=== PATIENT | male | born 1955 | race African-American/Black ===

== ENCOUNTER 2018-01-27 19:48 | Inpatient (IN) | payer BC ==
[~2018-01-27] VITALS: Ht 182.9 cm; Wt 96.6 kg
[2018-01-27] MEDS ORDERED: ACETAMINOPHEN 325MG TABLET PO STA (21:19)
[2018-01-27] MEDS ORDERED: SODIUM CHLORIDE 0.9% 1000ML BAG (SEPSIS BOLUS) IV ONE (21:30)
[2018-01-27 22:08] LABS: MEAN CORPUSCULAR HEMOGLOBIN 30.2 pg (28.0-32.0); MEAN CORPUSCULAR VOLUME 85.8 fL (80.0-94.0); MEAN PLATELET VOLUME 11.5 fl (7.4-10.4); PLATELET 54 x1000/uL (130-400); RED CELL DISTRIBUTION WIDTH 17.1 % (11.6-14.6)
[2018-01-27 22:12] LABS: CHLORIDE 89 mEq/L (98-107)
[2018-01-27 22:13] LABS: HEMOGLOBIN. 6.7 g/dL (14.0-18.0)
[2018-01-27 22:14] LABS: HEMATOCRIT. 18.9 % (42.0-52.0)
[2018-01-27 22:16] LABS: INR 1.1
[2018-01-27 22:20] LABS: ETHANOL BLOOD < 10 mg/dL
[2018-01-27 22:32] LABS: PLATELET ESTIMATE DECREASED
[2018-01-27] MEDS ORDERED: MEROPENEM 1,000 MG in SODIUM CHLORIDE 0.9% 100 ML IV ONE (23:00)
[2018-01-27] MEDS ORDERED: VANCOMYCIN 1 G PREMIX 200 ML IV ONE (23:00)
[2018-01-28] VITALS (9 sets, daily range): BP systolic 128–145; BP diastolic 59–78
[2018-01-28] MEDS ORDERED: IPRATROPIUM/ALBUTEROL 0.5-3(2.5)MG/3ML NEB INH PRN (03:30)
[2018-01-28] MEDS ORDERED: GUAIFENESIN 200MG/10ML SUGAR FREE UDC PO PRN (03:30)
[2018-01-28] MEDS ORDERED: ONDANSETRON HCL 4MG/2ML INJ IV PRN (03:30)
[2018-01-28 03:31] LABS: CLARITY URINE CLEAR (CLEAR); COLOR URINE YELLOW (YELLOW); PROTEIN URINE 2+ (NEGATIVE); SPECIFIC GRAVITY URINE 1.021 (1.005-1.030)
[2018-01-28 03:32] LABS: KETONES URINE TRACE (NEGATIVE); LEUKOCYTE ESTERASE URINE NEGATIVE (NEGATIVE); NITRITE URINE NEGATIVE (NEGATIVE); OCCULT BLOOD URINE NEGATIVE (NEGATIVE)
[2018-01-28 03:44] LABS: *AMPHETAMINES SCREEN URINE NEGATIVE (NEGATIVE); *BARBITURATES SCREEN URINE NEGATIVE (NEGATIVE)
[2018-01-28 03:45] LABS: *BENZODIAZEPINES SCREEN URINE NEGATIVE (NEGATIVE); *COCAINE SCREEN URINE NEGATIVE (NEGATIVE); CANNABINOID URINE SCREEN NEGATIVE (NEGATIVE); METHADONE URINE SCREEN NEGATIVE (NEGATIVE); OPIATES URINE SCREEN PRESUMTIVE POSITIVE (NEGATIVE); PHENCYCLIDINE URINE SCREEN NEGATIVE (NEGATIVE)
[2018-01-28] MEDS ORDERED: DEXTROSE 50% WATER 50ML SYRINGE IV PRN (04:30)
[2018-01-28] MEDS: INSULIN LISPRO 100 UNITS/ML SUBCUT SCH ×4 (08:20→21:00)
[2018-01-28] MEDS ORDERED: PIPERACILLIN/TAZ 3.375G PREMIX 50 ML IV SCH (09:15)
[2018-01-28] MEDS: BLOOD SUGAR DIAGNOSTIC STRIP TEST SCH ×4 (09:38→21:00)
[2018-01-28] MEDS: ACETAMINOPHEN 325MG TABLET PO PRN ×3 (09:53→22:23)
[2018-01-28] MEDS ORDERED: APIX5TAB MT (11:06)
[2018-01-28] MEDS ORDERED: LISI-604 MT (11:06)
[2018-01-28] MEDS ORDERED: INFLUENZA VIRUS VACCINE(AFLURIA) 0.5ML SYR IM ONE (12:00)
[2018-01-28] MEDS: DEXT 5%/0.45% NACL 1000ML 1,000 ML IV SCH ×2 (12:40→22:25)
[2018-01-28] MEDS: VANCOMYCIN 1 G PREMIX 200 ML IV SCH (12:59)
[2018-01-28 15:48] LABS: BASOPHILS % 0.5 % (0.0-2.0); EOSINOPHILS % 0.2 % (0.0-5.0); HEMOGLOBIN. 7.3 g/dL (14.0-18.0); LYMPHOCYTES % 25.3 % (20.0-50.0); MEAN CORPUSCULAR HEMOGLOBIN 30.5 pg (28.0-32.0); MEAN CORPUSCULAR VOLUME 86.6 fL (80.0-94.0); MEAN PLATELET VOLUME 11.3 fl (7.4-10.4); MONOCYTES % 3.8 % (2.0-8.0); NEUTROPHILS % 70.2 % (40.0-76.0); RED BLOOD CELL COUNT 2.39 mill/uL (4.7-6.1); RED CELL DISTRIBUTION WIDTH 16.7 % (11.6-14.6)
[2018-01-28 16:05] LABS: CHLORIDE 93 mEq/L (98-107)
[2018-01-28 16:14] LABS: HEMATOCRIT. 20.7 % (42.0-52.0)
[2018-01-28] MEDS: CEFEPIME 1,000 MG in DEXTROSE 5% WATER 50 ML IV SCH (18:02)
[2018-01-28] MEDS: METRONIDAZOLE 500MG TABLET PO SCH (22:22)
[2018-01-28] MEDS: PANTOPRAZOLE SODIUM 40 MG/VIAL IV SCH (22:24)
[2018-01-29] VITALS (11 sets, daily range): BP systolic 123–149; BP diastolic 3–81
[2018-01-29] MEDS: VANCOMYCIN 1 G PREMIX 200 ML IV SCH (00:39)
[2018-01-29] MEDS: CEFEPIME 1,000 MG in DEXTROSE 5% WATER 50 ML IV SCH ×2 (05:52→18:02)
[2018-01-29] MEDS: ACETAMINOPHEN 325MG TABLET PO PRN ×3 (05:53→21:22)
[2018-01-29] MEDS: DEXT 5%/0.45% NACL 1000ML 1,000 ML IV SCH ×2 (07:30→16:54)
[2018-01-29] MEDS: BLOOD SUGAR DIAGNOSTIC STRIP TEST SCH ×4 (08:13→20:57)
[2018-01-29 08:48] LABS: HEMATOCRIT 21.7 % (42.0-52.0); HEMOGLOBIN 7.7 g/dL (14.0-18.0); MEAN CORPUSCULAR HEMOGLOBIN 30.1 pg (28.0-32.0); MEAN CORPUSCULAR VOLUME 85.2 fL (80.0-94.0); RED BLOOD CELL COUNT 2.55 mill/uL (4.7-6.1); RED CELL DISTRIBUTION WIDTH 16.2 % (11.6-14.6)
[2018-01-29 09:24] LABS: CHLORIDE 91 mEq/L (98-107)
[2018-01-29 09:37] LABS: CREATINE KINASE 71 IU/L (39-308)
[2018-01-29] MEDS: PANTOPRAZOLE SODIUM 40 MG/VIAL IV SCH (10:17)
[2018-01-29] MEDS: METRONIDAZOLE 500MG TABLET PO SCH ×2 (10:17→20:57)
[2018-01-29] MEDS: INSULIN LISPRO 100 UNITS/ML SUBCUT SCH ×4 (10:18→21:21)
[2018-01-29] MEDS ORDERED: VANCOMYCIN 1500MG in DEXTROSE 5% WATER 250ML IV SCH (13:00)
[2018-01-29 14:19] LABS: PLATELET 34 x1000/uL (130-400)
[2018-01-30] VITALS (10 sets, daily range): BP systolic 107–146; BP diastolic 59–91
[2018-01-30] MEDS: DEXT 5%/0.45% NACL 1000ML 1,000 ML IV SCH (03:59)
[2018-01-30] MEDS: CEFEPIME 1,000 MG in DEXTROSE 5% WATER 50 ML IV SCH ×2 (05:05→17:15)
[2018-01-30] MEDS: ACETAMINOPHEN 325MG TABLET PO PRN ×2 (05:06→16:40)
[2018-01-30] MEDS: BLOOD SUGAR DIAGNOSTIC STRIP TEST SCH ×4 (07:30→21:29)
[2018-01-30] MEDS: PANTOPRAZOLE SODIUM 40 MG/VIAL IV SCH ×2 (09:18→11:17)
[2018-01-30] MEDS: METRONIDAZOLE 500MG TABLET PO SCH ×2 (09:18→21:14)
[2018-01-30] MEDS: INSULIN LISPRO 100 UNITS/ML SUBCUT SCH ×4 (09:20→21:29)
[2018-01-30 13:34] LABS: HEMATOCRIT 21.8 % (42.0-52.0); HEMOGLOBIN 7.7 g/dL (14.0-18.0); MEAN CORPUSCULAR VOLUME 85.1 fL (80.0-94.0); RED BLOOD CELL COUNT 2.56 mill/uL (4.7-6.1); RED CELL DISTRIBUTION WIDTH 16.1 % (11.6-14.6)
[2018-01-30 13:45] LABS: PLATELET 39 x1000/uL (130-400); PLATELET ESTIMATE MARKEDLY DECREASED
[2018-01-30 14:16] LABS: PLATELET 33 x1000/uL (130-400)
[2018-01-30 18:23] LABS: TOTAL IRON BINDING CAPACITY 157 ug/dL (250-450)
[2018-01-30 19:05] LABS: FERRITIN 6093 ng/mL (22-322)
[2018-01-30] MEDS ORDERED: INSULIN GLARGINE UD 100 UNITS/ML SYR SUBCUT SCH (22:00)
[2018-01-31] VITALS (12 sets, daily range): BP systolic 97–141; BP diastolic 52–98
[2018-01-31] MEDS: CEFEPIME 1,000 MG in DEXTROSE 5% WATER 50 ML IV SCH (05:30)
[2018-01-31] MEDS: BLOOD SUGAR DIAGNOSTIC STRIP TEST SCH ×4 (08:22→20:23)
[2018-01-31] MEDS: INSULIN LISPRO 100 UNITS/ML SUBCUT SCH ×4 (08:43→21:15)
[2018-01-31] MEDS ORDERED: DEXTROSE 50% WATER 50ML SYRINGE IV PRN (10:00)
[2018-01-31] MEDS ORDERED: INSULIN LISPRO 100 UNITS/ML SUBCUT NR (10:00)
[2018-01-31] MEDS: METRONIDAZOLE 500MG TABLET PO SCH ×2 (10:02→20:22)
[2018-01-31] MEDS: PANTOPRAZOLE SODIUM 40 MG/VIAL IV SCH (10:02)
[2018-01-31] MEDS: INSULIN GLARGINE UD 100 UNITS/ML SYR SUBCUT SCH ×2 (10:36→21:14)
[2018-01-31 15:46] LABS: HAPTOGLOBIN 296 mg/dL (30-200)
[2018-01-31 15:48] LABS: D-DIMER 2.41 mg/L FEU (<0.50); PARTIAL THROMBOPLASTIN TIME 30.1 sec (23.4-31.0)
[2018-01-31] MEDS: ACETAMINOPHEN 325MG TABLET PO PRN ×2 (16:53→23:34)
[2018-02-01] VITALS (11 sets, daily range): BP systolic 104–128; BP diastolic 49–67
[2018-02-01] MEDS: BLOOD SUGAR DIAGNOSTIC STRIP TEST SCH ×4 (08:04→21:04)
[2018-02-01] MEDS: METRONIDAZOLE 500MG TABLET PO SCH ×2 (08:59→21:04)
[2018-02-01] MEDS: PANTOPRAZOLE SODIUM 40 MG/VIAL IV SCH (08:59)
[2018-02-01] MEDS: INSULIN LISPRO 100 UNITS/ML SUBCUT SCH ×4 (08:59→21:04)
[2018-02-01] MEDS: INSULIN GLARGINE UD 100 UNITS/ML SYR SUBCUT SCH ×2 (09:39→21:03)
[2018-02-01 23:34] LABS: VITAMIN B12 SERUM 1223 pg/mL (211-911)
[2018-02-01 23:35] LABS: FOLIC ACID (FOLATE) SERUM > 20.00 ng/mL (>5.38)
[2018-02-02] VITALS (16 sets, daily range): BP systolic 100–135; BP diastolic 49–85
[2018-02-02 07:34] LABS: CHLORIDE 98 mEq/L (98-107)
[2018-02-02 07:37] LABS: BASOPHILS % 0.7 % (0.0-2.0); EOSINOPHILS % 0.2 % (0.0-5.0); HEMATOCRIT. 21.4 % (42.0-52.0); HEMOGLOBIN. 7.5 g/dL (14.0-18.0); LYMPHOCYTES % 36.8 % (20.0-50.0); MEAN CORPUSCULAR HEMOGLOBIN 30.6 pg (28.0-32.0); MEAN CORPUSCULAR VOLUME 87.1 fL (80.0-94.0); MEAN PLATELET VOLUME 11.9 fl (7.4-10.4); MONOCYTES % 4.6 % (2.0-8.0); NEUTROPHILS % 57.7 % (40.0-76.0); RED BLOOD CELL COUNT 2.46 mill/uL (4.7-6.1); RED CELL DISTRIBUTION WIDTH 15.8 % (11.6-14.6)
[2018-02-02] MEDS: BLOOD SUGAR DIAGNOSTIC STRIP TEST SCH ×4 (07:44→20:46)
[2018-02-02 07:45] LABS: PHOSPHORUS 3.5 mg/dL (2.5-4.9)
[2018-02-02 07:53] LABS: PLATELET 30 x1000/uL (130-400)
[2018-02-02] MEDS: METRONIDAZOLE 500MG TABLET PO SCH ×2 (09:00→20:42)
[2018-02-02] MEDS: PANTOPRAZOLE SODIUM 40 MG/VIAL IV SCH (09:36)
[2018-02-02] MEDS: INSULIN LISPRO 100 UNITS/ML SUBCUT SCH ×4 (09:45→20:43)
[2018-02-02] MEDS: INSULIN GLARGINE UD 100 UNITS/ML SYR SUBCUT SCH ×2 (10:00→22:05)
[2018-02-02] MEDS ORDERED: FENTANYL CITRATE/PF 50MCG/ML 2ML VIAL ONE (10:03)
[2018-02-02] MEDS ORDERED: MIDAZOLAM HCL 2 MG/2 ML VIAL ONE (10:03)
[2018-02-02] MEDS ORDERED: PROPOFOL 200MG/20ML VIAL IV ONE (10:03)
[2018-02-02] MEDS ORDERED: PHENYLEPHRINE HCL 10 MG/ML 1ML (IV VIAL) IV ONE (10:17)
[2018-02-02] MEDS ORDERED: MEPERIDINE HCL/PF 25MG/ML CPJ IV PRN (10:30)
[2018-02-02] MEDS ORDERED: FENTANYL CITRATE/PF 50MCG/ML 2ML VIAL IV PRN (10:30)
[2018-02-02] MEDS ORDERED: ONDANSETRON HCL 4MG/2ML INJ IV PRN (10:30)
[2018-02-02] MEDS ORDERED: MORPHINE SULFATE 4 MG/ML CPJ (NOT FOR IM USE) IV PRN (10:30)
[2018-02-02] MEDS ORDERED: HYDROMORPHONE HCL/PF 2MG/ML CPJ IV PRN (10:30)
[2018-02-02] MEDS: ACETAMINOPHEN 325MG TABLET PO PRN (20:42)
[2018-02-03] VITALS (11 sets, daily range): BP systolic 115–142; BP diastolic 59–72
[2018-02-03] MEDS: BLOOD SUGAR DIAGNOSTIC STRIP TEST SCH ×4 (07:30→20:37)
[2018-02-03] MEDS: INSULIN GLARGINE UD 100 UNITS/ML SYR SUBCUT SCH ×2 (10:15→22:23)
[2018-02-03] MEDS: INSULIN LISPRO 100 UNITS/ML SUBCUT SCH ×4 (10:16→20:49)
[2018-02-03] MEDS: PANTOPRAZOLE SODIUM 40 MG/VIAL IV SCH (10:16)
[2018-02-03] MEDS: METRONIDAZOLE 500MG TABLET PO SCH ×2 (10:16→20:44)
[2018-02-03 11:42] LABS: BASOPHILS % 0.8 % (0.0-2.0); EOSINOPHILS % 0.3 % (0.0-5.0); LYMPHOCYTES % 31.8 % (20.0-50.0); MEAN CORPUSCULAR HEMOGLOBIN 30.5 pg (28.0-32.0); MEAN CORPUSCULAR VOLUME 87.9 fL (80.0-94.0); MEAN PLATELET VOLUME 10.7 fl (7.4-10.4); NEUTROPHILS % 63.1 % (40.0-76.0); RED BLOOD CELL COUNT 2.32 mill/uL (4.7-6.1); RED CELL DISTRIBUTION WIDTH 15.8 % (11.6-14.6)
[2018-02-03 11:54] LABS: HEMATOCRIT. 20.4 % (42.0-52.0); HEMOGLOBIN. 7.1 g/dL (14.0-18.0)
[2018-02-03 11:55] LABS: PLATELET 50 x1000/uL (130-400)
[2018-02-03 12:19] LABS: PLATELET ESTIMATE MARKEDLY DECREASED
[2018-02-03 15:22] LABS: CHLORIDE 98 mEq/L (98-107)
[2018-02-03] MEDS ORDERED: LANTUSUD SUBCUT (23:12)
[2018-02-03] MEDS ORDERED: INSLIS SUBCUT (23:12)
[2018-02-04] VITALS (12 sets, daily range): BP systolic 126–149; BP diastolic 61–88
[2018-02-04] MEDS: ACETAMINOPHEN 325MG TABLET PO PRN ×2 (01:41→20:26)
[2018-02-04] MEDS: INSULIN LISPRO 100 UNITS/ML SUBCUT SCH ×4 (08:00→21:00)
[2018-02-04] MEDS: BLOOD SUGAR DIAGNOSTIC STRIP TEST SCH ×4 (08:11→21:00)
[2018-02-04] MEDS: PANTOPRAZOLE SODIUM 40 MG/VIAL IV SCH (09:13)
[2018-02-04] MEDS: METRONIDAZOLE 500MG TABLET PO SCH ×2 (09:13→20:26)
[2018-02-04] MEDS ORDERED: IOHEXOL-350 100 ML BOTTLE ONE (10:46)
[2018-02-04] MEDS: INSULIN GLARGINE UD 100 UNITS/ML SYR SUBCUT SCH ×2 (11:00→22:42)
[2018-02-04 17:38] LABS: BASOPHILS % 0.6 % (0.0-2.0); EOSINOPHILS % 0.3 % (0.0-5.0); LYMPHOCYTES % 37.4 % (20.0-50.0); MEAN CORPUSCULAR HEMOGLOBIN 30.2 pg (28.0-32.0); MEAN PLATELET VOLUME 10.7 fl (7.4-10.4); MONOCYTES % 4.7 % (2.0-8.0); PLATELET 62 x1000/uL (130-400); RED BLOOD CELL COUNT 2.23 mill/uL (4.7-6.1); RED CELL DISTRIBUTION WIDTH 15.6 % (11.6-14.6)
[2018-02-04 17:43] LABS: HEMATOCRIT. 19.4 % (42.0-52.0); HEMOGLOBIN. 6.7 g/dL (14.0-18.0)
[2018-02-04 17:49] LABS: CHLORIDE 99 mEq/L (98-107)
[2018-02-05] VITALS (15 sets, daily range): BP systolic 117–151; BP diastolic 57–80
[2018-02-05 07:28] LABS: BASOPHILS % 0.6 % (0.0-2.0); EOSINOPHILS % 0.4 % (0.0-5.0); HEMATOCRIT. 21.2 % (42.0-52.0); HEMOGLOBIN. 7.5 g/dL (14.0-18.0); LYMPHOCYTES % 46.2 % (20.0-50.0); MEAN CORPUSCULAR HEMOGLOBIN 30.5 pg (28.0-32.0); MEAN CORPUSCULAR VOLUME 86.7 fL (80.0-94.0); MEAN PLATELET VOLUME 9.8 fl (7.4-10.4); MONOCYTES % 4.7 % (2.0-8.0); NEUTROPHILS % 48.1 % (40.0-76.0); PLATELET 63 x1000/uL (130-400); RED BLOOD CELL COUNT 2.44 mill/uL (4.7-6.1); RED CELL DISTRIBUTION WIDTH 15.1 % (11.6-14.6)
[2018-02-05] MEDS: BLOOD SUGAR DIAGNOSTIC STRIP TEST SCH ×2 (07:30→12:30)
[2018-02-05] MEDS: INSULIN LISPRO 100 UNITS/ML SUBCUT SCH ×2 (08:00→13:00)
[2018-02-05] MEDS: PANTOPRAZOLE SODIUM 40 MG/VIAL IV SCH (09:00)
[2018-02-05] MEDS: INSULIN GLARGINE UD 100 UNITS/ML SYR SUBCUT SCH (10:43)
[2018-02-05] MEDS ORDERED: LIDOCAINE HCL 1% 20ML VIAL (Pyxis) INJ ONE (13:18)
[2018-02-05] MEDS ORDERED: IOHEXOL-300 100 ML BOTTLE ONE (13:18)
[2018-02-05] MEDS: ACETAMINOPHEN 325MG TABLET PO PRN (19:59)
[2018-02-06 08:17] LABS: HIV SCREEN 4G Non Reactive (Non Reactive)
== END 2018-02-05 20:08 | disposition home or self-care (01) | DRG 853 ==
LOC: ER 19:48 → EDBD 22:48 → 5EST 22:48 → EDBEDREQTM 22:56 → EDBEDREQ 22:56 → ENRESERV 01-28 07:06 → CANRESERV 01-28 07:06 → EDBEDREQSVC 01-28 08:26 → ENRESERV 01-28 09:50
PROVIDERS: ADMIT Internal Medicine; ATTEND Internal Medicine
PROC: 30233N1 Transfusion of Nonautologous Red Blood Cells into Peripheral Vein, Percutaneous Approach (ICD-10-PCS; 2018-01-28)
PROC: 07DQ3ZX Extraction of Sternum Bone Marrow, Percutaneous Approach, Diagnostic (ICD-10-PCS; 2018-02-02)
PROC: 30233R1 Transfusion of Nonautologous Platelets into Peripheral Vein, Percutaneous Approach (ICD-10-PCS; 2018-02-02)
PROC: 06H03DZ Insertion of Intraluminal Device into Inferior Vena Cava, Percutaneous Approach (ICD-10-PCS; principal; 2018-02-05)
PROC: B5191ZZ Fluoroscopy of Inferior Vena Cava using Low Osmolar Contrast (ICD-10-PCS; 2018-02-05)
DX: A41.9 Sepsis, unspecified organism (principal); I26.99 Other pulmonary embolism without acute cor pulmonale; D61.818 Other pancytopenia; I10 Essential (primary) hypertension; M54.5 Low back pain; G89.29 Other chronic pain; E11.9 Type 2 diabetes mellitus without complications; Z86.711 Personal history of pulmonary embolism; Z86.718 Personal history of other venous thrombosis and embolism; Z79.01 Long term (current) use of anticoagulants; Z79.84 Long term (current) use of oral hypoglycemic drugs; Z79.899 Other long term (current) drug therapy
CPT/HCPCS: 36415; 37191; 38220; 71045; 71275; 74176; 80048; 80202; 80305; 82550; 82607; 82728; 82746; 82962; 83010; 83540; 83550; 83605; 83615; 83735; 84100; 84145; 84443; 84484; 85027; 85379; 85384; 86850; 86900; 86920; 86945; 87389; 87804; 88305; 88313; 90686; 93005; 93970; 96365; 97162; 99291; C1769; C1880; C9113; G0482; J0692; J1644; J1815; J2185; J2250; J2370; J2543; J2704; J3010; J3370; J3490; J7030; J7050; J7060; P9016; P9034; Q9967

== ENCOUNTER 2018-02-09 09:38 | Emergency (ER) | payer BC ==
[~2018-02-09] VITALS: Ht 182.9 cm; Wt 88.0 kg
[~2018-02-09 09:38] MED LIST: APIX5TAB MT; INSLIS SUBCUT; LANTUSUD SUBCUT; LISI-604 MT
[2018-02-09] MEDS ORDERED: MORPHINE SULFATE 4 MG/ML CPJ (NOT FOR IM USE) IV STA (10:30)
[2018-02-09 11:26] LABS: HEMATOCRIT. 22.4 % (42.0-52.0); HEMOGLOBIN. 7.6 g/dL (14.0-18.0); MEAN CORPUSCULAR HEMOGLOBIN 30.2 pg (28.0-32.0); MEAN CORPUSCULAR VOLUME 88.5 fL (80.0-94.0); MEAN PLATELET VOLUME 10.5 fl (7.4-10.4); PLATELET 77 x1000/uL (130-400); RED BLOOD CELL COUNT 2.53 mill/uL (4.7-6.1); RED CELL DISTRIBUTION WIDTH 15.2 % (11.6-14.6)
[2018-02-09 11:31] LABS: CHLORIDE 98 mEq/L (98-107)
[2018-02-09 11:32] LABS: PROTHROMBIN TIME 10.5 sec (9.1-11.1)
[2018-02-09] MEDS ORDERED: SODIUM CHLORIDE 0.9% 1,000 ML IV ONE (13:17)
[2018-02-09 13:18] LABS: PLATELET ESTIMATE SLIGHTLY DECREASED
[2018-02-09] MEDS ORDERED: INSULIN REGULAR (HUMULIN R) 300UNITS/3ML IV ONE (13:30)
[2018-02-09 14:15] VITALS: BP 122/70
== END 2018-02-09 14:48 | disposition home or self-care (01) ==
LOC: ER 09:38
DX: R10.31 Right lower quadrant pain (principal); E11.65 Type 2 diabetes mellitus with hyperglycemia; D61.818 Other pancytopenia; I10 Essential (primary) hypertension; Z86.718 Personal history of other venous thrombosis and embolism; Z79.01 Long term (current) use of anticoagulants; Z79.4 Long term (current) use of insulin
CPT/HCPCS: 36415; 72170; 74018; 80053; 82962; 85025; 85610; 93971; 96374; 96375; 99284; J1815; J2270; J7030

== ENCOUNTER 2018-10-19 04:21 | Inpatient (IN) | payer BC ==
[~2018-10-19] VITALS: Ht 182.9 cm; Wt 98.4 kg
[2018-10-19] VITALS (71 sets, daily range): BP systolic 54–173; BP diastolic 21–104
[~2018-10-19 04:21] MED LIST changes: -LISI-604 MT
[2018-10-19] MEDS ORDERED: ONDANSETRON HCL 4MG/2ML INJ IV STA (04:32)
[2018-10-19] MEDS ORDERED: MORPHINE SULFATE 4 MG/ML CPJ (NOT FOR IM USE) IV STA (04:32)
[2018-10-19] MEDS ORDERED: SODIUM CHLORIDE 0.9% 1,000 ML IV ONE ×2 (04:32→08:35)
[2018-10-19] MEDS ORDERED: SODIUM CHLORIDE 0.9% 1000ML BAG (SEPSIS BOLUS) IV ONE (04:45)
[2018-10-19] MEDS ORDERED: HYDROCORTISONE SOD SUCCINATE 100 MG/2 ML VIAL IV ONE ×2 (04:45→05:15)
[2018-10-19] MEDS ORDERED: VANCOMYCIN 1 G PREMIX 200 ML IV ONE (04:45)
[2018-10-19] MEDS ORDERED: PIPERACILLIN/TAZ 3.375G PREMIX 50 ML IV ONE (04:45)
[2018-10-19] MEDS ORDERED: PROPOFOL 10MG/ML 100ML 100 ML IV ONE (04:47)
[2018-10-19 04:54] LABS: HEMATOCRIT. 23.1 % (42.0-52.0); HEMOGLOBIN. 7.9 g/dL (14.0-18.0); MEAN CORPUSCULAR HEMOGLOBIN 29.6 pg (28.0-32.0); MEAN PLATELET VOLUME 7.3 fl (7.4-10.4); RED BLOOD CELL COUNT 2.69 mill/uL (4.7-6.1); RED CELL DISTRIBUTION WIDTH 14.9 % (11.6-14.6)
[2018-10-19 05:02] LABS: CHLORIDE 104 mEq/L (98-107)
[2018-10-19 05:04] LABS: INR 1.2; PROTHROMBIN TIME 11.9 sec (9.6-11.0)
[2018-10-19 05:10] LABS: PLATELET 36 x1000/uL (130-400)
[2018-10-19] MEDS ORDERED: NOREPINEPHRINE 4 MG in DEXT 5% WATER 250 ML IV STA (05:13)
[2018-10-19 05:14] LABS: BG BASE EXCESS -6.3 mmol/L (-2.0-2.0); BG CARBOXYHEMOGLOBIN 0.3 % (0.5-1.5); BG DEOXYHEMOGLOBIN 1.1 % (0.0-5.0); BG FRACTION INSPIRED OXYGEN 100; BG HCO3 ACT 19.6 mmol/L (22.0-26.0); BG METHEMOGLOBIN 0.8 % (0.0-1.5); BG OXYGEN SATURATION 98.9 % (92.0-98.5); BG OXYHEMOGLOBIN 97.8 % (94.0-97.0); BG PCO2 41.1 mmHg (35.0-45.0); BG PH 7.297 (7.350-7.450); BG PO2 254.1 mmHg (75.0-100.0); BG SAMPLE SITE LEFT RADIAL; BG TIDAL VOLUME(mL) 500 mL; BG TOTAL HEMOGLOBIN 7.1 g/dL (12.0-18.0); BG VENT MODE VENT - A/C; BG VENT RATE 16 set
[2018-10-19] MEDS ORDERED: MIDAZOLAM HCL 50 MG in DEXTROSE 5% WATER 40 ML IV ONE (05:15)
[2018-10-19] MEDS ORDERED: NOREPINEPHRINE 4MG/250ML PMX 250 ML IV PRN (05:30)
[2018-10-19] MEDS ORDERED: MIDAZOLAM HCL 50 MG in DEXTROSE 5% WATER 40 ML IV PRN (05:45)
[2018-10-19 05:58] LABS: CLARITY URINE CLEAR (CLEAR); COLOR URINE YELLOW (YELLOW); KETONES URINE NEGATIVE (NEGATIVE); LEUKOCYTE ESTERASE URINE NEGATIVE (NEGATIVE); NITRITE URINE NEGATIVE (NEGATIVE); OCCULT BLOOD URINE NEGATIVE (NEGATIVE); PROTEIN URINE TRACE (NEGATIVE); SPECIFIC GRAVITY URINE 1.021 (1.005-1.030); UROBILINOGEN URINE 0.2 E.U./dL (0.2-1.0)
[2018-10-19 06:32] LABS: ATYPICAL LYMPHOCYTES 10
[2018-10-19 06:33] LABS: PLATELET ESTIMATE DECREASED
[2018-10-19] MEDS ORDERED: EPINEPHRINE 1 MG in SODIUM CHLORIDE 0.9% 250 ML IV STA ×2 (06:47→07:05)
[2018-10-19] MEDS ORDERED: VASOPRESSIN 10 UNIT in SODIUM CHLORIDE 0.9% 99.5 ML STA (06:47)
[2018-10-19] MEDS ORDERED: VASOPRESSIN 10 UNIT in SODIUM CHLORIDE 0.9% 99.5 ML IV STA (07:05)
[2018-10-19] MEDS ORDERED: NOREPINEPHRINE 32 MG in DEXT 5% WATER 468 ML IV PRN (08:12)
[2018-10-19] MEDS ORDERED: PHENYLEPHRINE 80 MG in DEXT 5% WATER 492 ML IV PRN (08:12)
[2018-10-19] MEDS ORDERED: SODIUM CHLORIDE 0.9% 1,000 ML IV SCH (08:15)
[2018-10-19] MEDS ORDERED: ACETAMINOPHEN 325MG TABLET PO PRN (08:30)
[2018-10-19] MEDS ORDERED: ONDANSETRON HCL 4MG/2ML INJ IV PRN (08:30)
[2018-10-19] MEDS: PHENYLEPHRINE 80 MG in DEXT 5% WATER 492 ML IV PRN ×3 (09:18→23:34)
[2018-10-19] MEDS: DEXT 5%/0.9% NACL 1,000 ML IV SCH (09:20)
[2018-10-19] MEDS ORDERED: CEFEPIME 1,000 MG in DEXTROSE 5% WATER 50 ML IV SCH (09:30)
[2018-10-19] MEDS ORDERED: FILGRASTIM 300 MCG/ML VIAL SUBCUT SCH (09:45)
[2018-10-19] MEDS ORDERED: METRONIDAZOLE 500 MG PREMIX 100 ML IV SCH (10:00)
[2018-10-19] MEDS: NOREPINEPHRINE 32 MG in DEXT 5% WATER 468 ML IV PRN (10:16)
[2018-10-19] MEDS: PROPOFOL 10MG/ML 100ML 100 ML IV PRN ×3 (10:18→21:17)
[2018-10-19] MEDS: VASOPRESSIN 10 UNIT in SODIUM CHLORIDE 0.9% 99.5 ML IV PRN ×3 (10:20→19:33)
[2018-10-19] MEDS ORDERED: FILGRASTIM-TBO 300 MCG/0.5 ML SYRINGE SQ SCH (10:30)
[2018-10-19 11:30] LABS: BG BASE EXCESS -13.2 mmol/L (-2.0-2.0); BG CARBOXYHEMOGLOBIN 0.3 % (0.5-1.5); BG DEOXYHEMOGLOBIN 1.6 % (0.0-5.0); BG FRACTION INSPIRED OXYGEN 40; BG HCO3 ACT 11.8 mmol/L (22.0-26.0); BG METHEMOGLOBIN 0.4 % (0.0-1.5); BG OXYGEN SATURATION 98.4 % (92.0-98.5); BG OXYHEMOGLOBIN 97.7 % (94.0-97.0); BG PCO2 24.1 mmHg (35.0-45.0); BG PH 7.308 (7.350-7.450); BG PO2 180.7 mmHg (75.0-100.0); BG SAMPLE SITE RIGHT RADIAL; BG TIDAL VOLUME(mL) 500 mL; BG TOTAL HEMOGLOBIN 6.4 g/dL (12.0-18.0); BG VENT MODE VENT - A/C; BG VENT RATE 18 set
[2018-10-19] MEDS: VANCOMYCIN 1500MG in DEXTROSE 5% WATER 250ML IV SCH ×2 (11:37→23:59)
[2018-10-19] MEDS ORDERED: SODIUM CHLORIDE 0.9% 10ML VIAL ONE (12:00)
[2018-10-19] MEDS ORDERED: VECURONIUM BROMIDE 10 MG/VIAL IV ONE (12:00)
[2018-10-19] MEDS ORDERED: IPRATROPIUM/ALBUTEROL 0.5-3(2.5)MG/3ML NEB HHN SCH (12:00)
[2018-10-19] MEDS: IPRATROPIUM/ALBUTEROL 0.5-3(2.5)MG/3ML NEB HHN PRN (12:03)
[2018-10-19] MEDS ORDERED: MICAFUNGIN 100 MG in SODIUM CHLORIDE 0.9% 100 ML IV SCH (13:00)
[2018-10-19] MEDS ORDERED: FENTANYL CITRATE/PF 50MCG/ML 2ML VIAL IV SCH (13:00)
[2018-10-19] MEDS ORDERED: AMIKACIN SULFATE 500 MG in SODIUM CHLORIDE 0.9% 100 ML IV NR (13:00)
[2018-10-19] MEDS: MEROPENEM 1,000 MG in SODIUM CHLORIDE 0.9% 100 ML IV SCH ×2 (13:18→21:20)
[2018-10-19] MEDS: HYDROCORTISONE SOD SUCCINATE 100 MG/2 ML VIAL IV SCH ×2 (13:19→21:21)
[2018-10-19] MEDS: EPINEPHRINE 1 MG in SODIUM CHLORIDE 0.9% 249 ML IV PRN ×2 (13:46→17:12)
[2018-10-19] MEDS: IPRATROPIUM BROMIDE (0.02%) 0.5MG/2.5ML NEB HHN SCH ×2 (14:10→20:18)
[2018-10-19] MEDS ORDERED: CHOL40002 PO (14:24)
[2018-10-19] MEDS ORDERED: PROG1 PO (14:24)
[2018-10-19] MEDS ORDERED: PANT40TA4 PO (14:24)
[2018-10-19] MEDS ORDERED: LETE480T PO (14:24)
[2018-10-19] MEDS ORDERED: MAGN100T3 PO (14:24)
[2018-10-19] MEDS ORDERED: CLOT10TR2 MM (14:24)
[2018-10-19] MEDS ORDERED: METO25TA6 PO (14:24)
[2018-10-19] MEDS ORDERED: PRED2.5T4 PO (14:24)
[2018-10-19] MEDS ORDERED: ATOV750O PO (14:24)
[2018-10-19] MEDS ORDERED: INSASP SUBCUT (14:24)
[2018-10-19] MEDS ORDERED: LISI-186 PO (14:24)
[2018-10-19] MEDS ORDERED: HYDR-3281 PO (14:24)
[2018-10-19] MEDS ORDERED: URSO300C7 PO (14:24)
[2018-10-19] MEDS ORDERED: ACYC200C PO (14:24)
[2018-10-19] MEDS ORDERED: DIPH1TAB24 PO (14:24)
[2018-10-19] MEDS ORDERED: NPH,100I SQ (14:24)
[2018-10-19] MEDS ORDERED: SODIUM BICARBONATE 8.4% 1 MEQ/ML 50ML SYR IV NR (14:45)
[2018-10-19] MEDS ORDERED: MORPHINE SULFATE 250 MG in DEXT 5% WATER 240 ML IV PRN (16:45)
[2018-10-19] MEDS ORDERED: MORPHINE SULFATE 250 MG in DEXT 5% WATER 225 ML IV PRN (17:15)
[2018-10-19] MEDS: MORPHINE SULFATE 2 MG/ML CPJ (NOT FOR IM USE) IV PRN (17:17)
[2018-10-19 20:15] LABS: T4 FREE 1.57 ng/dL (0.76-1.46)
[2018-10-19 20:37] LABS: FOLIC ACID (FOLATE) SERUM 4.7 ng/mL (>5.38)
[2018-10-19] MEDS: BLOOD SUGAR DIAGNOSTIC STRIP TEST SCH (21:21)
[2018-10-19] MEDS: INSULIN LISPRO 100 UNITS/ML SUBCUT SCH (21:21)
[2018-10-19] MEDS ORDERED: INSULIN GLARGINE UD 100 UNITS/ML SYR SUBCUT SCH (22:00)
[2018-10-19] MEDS ORDERED: FILGRASTIM-TBO 480 MCG/0.8 ML SYRINGE SQ SCH (23:00)
[2018-10-20] VITALS (104 sets, daily range): BP systolic 75–131; BP diastolic 43–79
[2018-10-20] MEDS: DEXT 5%/0.9% NACL 1,000 ML IV SCH ×3 (02:08→13:36)
[2018-10-20] MEDS: VASOPRESSIN 10 UNIT in SODIUM CHLORIDE 0.9% 99.5 ML IV PRN ×5 (02:08→20:42)
[2018-10-20] MEDS: IPRATROPIUM BROMIDE (0.02%) 0.5MG/2.5ML NEB HHN SCH ×4 (02:35→20:38)
[2018-10-20] MEDS: PROPOFOL 10MG/ML 100ML 100 ML IV PRN ×2 (03:13→08:24)
[2018-10-20] MEDS: NOREPINEPHRINE 32 MG in DEXT 5% WATER 468 ML IV PRN ×2 (03:26→23:30)
[2018-10-20] MEDS: EPINEPHRINE 1 MG in SODIUM CHLORIDE 0.9% 249 ML IV PRN (03:57)
[2018-10-20] MEDS: HYDROCORTISONE SOD SUCCINATE 100 MG/2 ML VIAL IV SCH ×3 (05:14→22:24)
[2018-10-20] MEDS: MEROPENEM 1,000 MG in SODIUM CHLORIDE 0.9% 100 ML IV SCH ×2 (05:14→16:04)
[2018-10-20 05:29] LABS: MEAN CORPUSCULAR HEMOGLOBIN 30.8 pg (28.0-32.0); MEAN CORPUSCULAR VOLUME 86.6 fL (80.0-94.0); MEAN PLATELET VOLUME 9.4 fl (7.4-10.4); RED BLOOD CELL COUNT 1.96 mill/uL (4.7-6.1); RED CELL DISTRIBUTION WIDTH 15.3 % (11.6-14.6)
[2018-10-20 06:00] LABS: PLATELET 10 x1000/uL (130-400)
[2018-10-20] MEDS: BLOOD SUGAR DIAGNOSTIC STRIP TEST SCH ×5 (06:32→23:44)
[2018-10-20] MEDS: PHENYLEPHRINE 80 MG in DEXT 5% WATER 492 ML IV PRN ×3 (06:32→21:32)
[2018-10-20] MEDS: INSULIN LISPRO 100 UNITS/ML SUBCUT SCH ×7 (06:32→23:51)
[2018-10-20 07:57] LABS: BG BASE EXCESS -12.4 mmol/L (-2.0-2.0); BG CARBOXYHEMOGLOBIN 0.3 % (0.5-1.5); BG DEOXYHEMOGLOBIN 1.6 % (0.0-5.0); BG FRACTION INSPIRED OXYGEN 40; BG HCO3 ACT 12.7 mmol/L (22.0-26.0); BG METHEMOGLOBIN 0.7 % (0.0-1.5); BG OXYGEN SATURATION 98.4 % (92.0-98.5); BG OXYHEMOGLOBIN 97.4 % (94.0-97.0); BG PCO2 25.3 mmHg (35.0-45.0); BG PH 7.318 (7.350-7.450); BG PO2 140.9 mmHg (75.0-100.0); BG SAMPLE SITE RIGHT RADIAL; BG TIDAL VOLUME(mL) 500 mL; BG TOTAL HEMOGLOBIN 5.4 g/dL (12.0-18.0); BG VENT MODE VENT - A/C; BG VENT RATE 18 set
[2018-10-20] MEDS: EPINEPHRINE 4 MG in SODIUM CHLORIDE 0.9% 246 ML IV PRN ×2 (08:00→11:37)
[2018-10-20] MEDS: FILGRASTIM-TBO 480 MCG/0.8 ML SYRINGE SQ SCH (08:00)
[2018-10-20] MEDS: MORPHINE SULFATE 2 MG/ML CPJ (NOT FOR IM USE) IV PRN (08:02)
[2018-10-20 09:36] LABS: NUCLEATED RED BLOOD CELLS 65 /100 WBC
[2018-10-20 09:37] LABS: PLATELET ESTIMATE MARKEDLY DECREASED
[2018-10-20] MEDS: FENTANYL CITRATE/PF 500 MCG in SODIUM CHLORIDE 0.9% 40 ML IV PRN ×2 (11:02→18:24)
[2018-10-20] MEDS: MIDAZOLAM HCL 50 MG in DEXTROSE 5% WATER 40 ML IV PRN ×2 (12:08→18:08)
[2018-10-20] MEDS ORDERED: MEROPENEM 1,000 MG in SODIUM CHLORIDE 0.9% 100 ML IV SCH (13:00)
[2018-10-20] MEDS ORDERED: MICAFUNGIN 100 MG in SODIUM CHLORIDE 0.9% 100 ML IV SCH (14:00)
[2018-10-20 16:15] LABS: D-DIMER 32.52 mg/L FEU (<0.50); PROTHROMBIN TIME 19.7 sec (9.6-11.0)
[2018-10-20] MEDS ORDERED: MEROPENEM 2,000 MG in SODIUM CHLORIDE 0.9% 100 ML IV SCH (18:00)
[2018-10-20] MEDS: INSULIN GLARGINE UD 100 UNITS/ML SYR SUBCUT SCH (22:25)
[2018-10-21] VITALS (100 sets, daily range): BP systolic 72–135; BP diastolic 40–82
[2018-10-21] MEDS: DEXT 5%/0.9% NACL 1,000 ML IV SCH ×2 (00:40→10:15)
[2018-10-21 01:01] LABS: INR 1.9; PROTHROMBIN TIME 19.4 sec (9.6-11.0)
[2018-10-21 01:12] LABS: HEMOGLOBIN 6.1 g/dL (14.0-18.0)
[2018-10-21 01:13] LABS: HEMATOCRIT 17.9 % (42.0-52.0)
[2018-10-21] MEDS: VASOPRESSIN 10 UNIT in SODIUM CHLORIDE 0.9% 99.5 ML IV PRN ×4 (01:24→14:21)
[2018-10-21] MEDS: IPRATROPIUM BROMIDE (0.02%) 0.5MG/2.5ML NEB HHN SCH ×4 (03:29→19:52)
[2018-10-21] MEDS: MEROPENEM 1,000 MG in SODIUM CHLORIDE 0.9% 100 ML IV SCH ×2 (05:01→16:41)
[2018-10-21] MEDS: PHENYLEPHRINE 80 MG in DEXT 5% WATER 492 ML IV PRN (05:01)
[2018-10-21 05:30] LABS: MEAN CORPUSCULAR HEMOGLOBIN 30.5 pg (28.0-32.0); MEAN PLATELET VOLUME 9.4 fl (7.4-10.4); RED BLOOD CELL COUNT 2.08 mill/uL (4.7-6.1); RED CELL DISTRIBUTION WIDTH 15.1 % (11.6-14.6)
[2018-10-21] MEDS: BLOOD SUGAR DIAGNOSTIC STRIP TEST SCH ×4 (05:55→23:39)
[2018-10-21] MEDS: HYDROCORTISONE SOD SUCCINATE 100 MG/2 ML VIAL IV SCH ×3 (06:06→21:01)
[2018-10-21] MEDS: INSULIN LISPRO 100 UNITS/ML SUBCUT SCH ×8 (06:07→23:39)
[2018-10-21 06:19] LABS: HEMOGLOBIN. 6.3 g/dL (14.0-18.0)
[2018-10-21 06:20] LABS: HEMATOCRIT. 18.1 % (42.0-52.0); PLATELET 12 x1000/uL (130-400)
[2018-10-21 08:06] LABS: PLATELET ESTIMATE MARKEDLY DECREASED
[2018-10-21 08:07] LABS: NUCLEATED RED BLOOD CELLS 130 /100 WBC
[2018-10-21] MEDS: FILGRASTIM-TBO 480 MCG/0.8 ML SYRINGE SQ SCH (09:45)
[2018-10-21] MEDS ORDERED: ALBUMIN HUMAN 25GM/100ML (25%) IV NR (11:39)
[2018-10-21] MEDS ORDERED: SODIUM BICARBONATE 8.4% 1 MEQ/ML 50ML SYR IV NR (11:40)
[2018-10-21] MEDS ORDERED: MIDAZOLAM HCL 50 MG in SODIUM CHLORIDE 0.9% 40 ML IV PRN (11:53)
[2018-10-21] MEDS ORDERED: NOREPINEPHRINE 32 MG in SODIUM CHLORIDE 0.9% 468 ML IV PRN (12:08)
[2018-10-21] MEDS: PHENYLEPHRINE 80 MG in SODIUM CHLORIDE 0.9% 492 ML IV PRN ×2 (12:58→20:38)
[2018-10-21] MEDS: MICAFUNGIN 100 MG in SODIUM CHLORIDE 0.9% 100 ML IV SCH (14:35)
[2018-10-21 15:25] LABS: HEMOGLOBIN. 7.1 g/dL (14.0-18.0); MEAN CORPUSCULAR HEMOGLOBIN 30.4 pg (28.0-32.0); MEAN CORPUSCULAR VOLUME 86.3 fL (80.0-94.0); MEAN PLATELET VOLUME 8.1 fl (7.4-10.4); RED BLOOD CELL COUNT 2.34 mill/uL (4.7-6.1); RED CELL DISTRIBUTION WIDTH 15.4 % (11.6-14.6)
[2018-10-21 15:40] LABS: HEMATOCRIT. 20.2 % (42.0-52.0); PLATELET 23 x1000/uL (130-400)
[2018-10-21 17:20] LABS: NUCLEATED RED BLOOD CELLS 24 /100 WBC; PLATELET ESTIMATE MARKEDLY DECREASED
[2018-10-21] MEDS: INSULIN GLARGINE UD 100 UNITS/ML SYR SUBCUT SCH (21:02)
[2018-10-21] MEDS: DEXTROSE 50% WATER 50ML SYRINGE IV PRN (23:43)
[2018-10-22] VITALS (91 sets, daily range): BP systolic 81–126; BP diastolic 50–74
[2018-10-22] MEDS: IPRATROPIUM BROMIDE (0.02%) 0.5MG/2.5ML NEB HHN SCH ×4 (01:54→20:29)
[2018-10-22] MEDS: PHENYLEPHRINE 80 MG in SODIUM CHLORIDE 0.9% 492 ML IV PRN ×3 (05:06→22:16)
[2018-10-22] MEDS: DEXTROSE 50% WATER 50ML SYRINGE IV PRN ×5 (05:25→23:30)
[2018-10-22] MEDS: BLOOD SUGAR DIAGNOSTIC STRIP TEST SCH ×4 (05:25→23:30)
[2018-10-22] MEDS: HYDROCORTISONE SOD SUCCINATE 100 MG/2 ML VIAL IV SCH ×3 (05:25→21:58)
[2018-10-22] MEDS: INSULIN LISPRO 100 UNITS/ML SUBCUT SCH ×8 (05:25→23:29)
[2018-10-22] MEDS: MEROPENEM 1,000 MG in SODIUM CHLORIDE 0.9% 100 ML IV SCH ×2 (05:25→17:11)
[2018-10-22 05:53] LABS: HEMOGLOBIN. 7.1 g/dL (14.0-18.0); MEAN CORPUSCULAR HEMOGLOBIN 30.7 pg (28.0-32.0); MEAN CORPUSCULAR VOLUME 85.4 fL (80.0-94.0); MEAN PLATELET VOLUME 9.8 fl (7.4-10.4); RED CELL DISTRIBUTION WIDTH 15.6 % (11.6-14.6)
[2018-10-22 06:01] LABS: HEMATOCRIT. 19.7 % (42.0-52.0)
[2018-10-22 06:09] LABS: PHOSPHORUS 4.5 mg/dL (2.5-4.9)
[2018-10-22 08:29] LABS: BG CARBOXYHEMOGLOBIN 0.3 % (0.5-1.5); BG DEOXYHEMOGLOBIN 1.3 % (0.0-5.0); BG FRACTION INSPIRED OXYGEN 40; BG HCO3 ACT 14.6 mmol/L (22.0-26.0); BG METHEMOGLOBIN 0.5 % (0.0-1.5); BG OXYGEN SATURATION 98.7 % (92.0-98.5); BG OXYHEMOGLOBIN 97.9 % (94.0-97.0); BG PCO2 23.5 mmHg (35.0-45.0); BG PO2 176.8 mmHg (75.0-100.0); BG SAMPLE SITE RIGHT RADIAL; BG TIDAL VOLUME(mL) 500 mL; BG TOTAL HEMOGLOBIN 7.4 g/dL (12.0-18.0); BG VENT MODE VENT - A/C; BG VENT RATE 20 set
[2018-10-22] MEDS: PANTOPRAZOLE SODIUM 40 MG/VIAL IV SCH (08:46)
[2018-10-22] MEDS ORDERED: MAGNESIUM 4 G PREMIX 100 ML IV SCH (09:00)
[2018-10-22 09:26] LABS: NUCLEATED RED BLOOD CELLS 16 /100 WBC
[2018-10-22 09:27] LABS: PLATELET ESTIMATE MARKEDLY DECREASED
[2018-10-22 09:28] LABS: PLATELET 11 x1000/uL (130-400)
[2018-10-22] MEDS: FILGRASTIM-TBO 480 MCG/0.8 ML SYRINGE SQ SCH (11:14)
[2018-10-22] MEDS ORDERED: GLUCAGON,HUMAN RECOMBINANT 1MG/VIAL IV NR (14:30)
[2018-10-22] MEDS: MICAFUNGIN 100 MG in SODIUM CHLORIDE 0.9% 100 ML IV SCH (14:41)
[2018-10-22] MEDS: DEXT 10% WATER 1,000 ML IV SCH (15:40)
[2018-10-22] MEDS: MORPHINE SULFATE 2 MG/ML CPJ (NOT FOR IM USE) IV PRN (17:41)
[2018-10-23] VITALS (99 sets, daily range): BP systolic 96–140; BP diastolic 58–85
[2018-10-23] MEDS: MORPHINE SULFATE 2 MG/ML CPJ (NOT FOR IM USE) IV PRN ×3 (00:56→22:00)
[2018-10-23] MEDS: IPRATROPIUM BROMIDE (0.02%) 0.5MG/2.5ML NEB HHN SCH ×4 (02:00→20:30)
[2018-10-23] MEDS: MEROPENEM 1,000 MG in SODIUM CHLORIDE 0.9% 100 ML IV SCH ×2 (04:23→17:06)
[2018-10-23 05:00] LABS: HEMOGLOBIN. 7.2 g/dL (14.0-18.0); MEAN PLATELET VOLUME 10.3 fl (7.4-10.4); RED BLOOD CELL COUNT 2.41 mill/uL (4.7-6.1); RED CELL DISTRIBUTION WIDTH 15.8 % (11.6-14.6)
[2018-10-23] MEDS: BLOOD SUGAR DIAGNOSTIC STRIP TEST SCH ×4 (05:03→23:29)
[2018-10-23 05:09] LABS: CHLORIDE 106 mEq/L (98-107)
[2018-10-23] MEDS: DEXTROSE 50% WATER 50ML SYRINGE IV PRN ×3 (05:10→17:06)
[2018-10-23] MEDS: HYDROCORTISONE SOD SUCCINATE 100 MG/2 ML VIAL IV SCH ×3 (05:10→21:23)
[2018-10-23 05:26] LABS: HEMATOCRIT. 20.5 % (42.0-52.0); PLATELET 12 x1000/uL (130-400)
[2018-10-23] MEDS: INSULIN LISPRO 100 UNITS/ML SUBCUT SCH ×8 (05:31→23:29)
[2018-10-23 07:19] LABS: BG BASE EXCESS -9.5 mmol/L (-2.0-2.0); BG CARBOXYHEMOGLOBIN 0.3 % (0.5-1.5); BG DEOXYHEMOGLOBIN 1.4 % (0.0-5.0); BG HCO3 ACT 14.3 mmol/L (22.0-26.0); BG METHEMOGLOBIN 0.5 % (0.0-1.5); BG OXYGEN SATURATION 98.6 % (92.0-98.5); BG OXYHEMOGLOBIN 97.8 % (94.0-97.0); BG PCO2 23.9 mmHg (35.0-45.0); BG PH 7.395 (7.350-7.450); BG PO2 171.5 mmHg (75.0-100.0); BG SAMPLE SITE RIGHT RADIAL; BG TIDAL VOLUME(mL) 500 mL; BG TOTAL HEMOGLOBIN 7.4 g/dL (12.0-18.0); BG VENT MODE VENT - A/C; BG VENT RATE 20 set
[2018-10-23] MEDS: PANTOPRAZOLE SODIUM 40 MG/VIAL IV SCH (08:21)
[2018-10-23] MEDS ORDERED: ALBUMIN HUMAN 25GM/100ML (25%) IV NR (09:15)
[2018-10-23] MEDS: CITRIC ACID/SODIUM CITRATE SOLN 30ML UDC NG SCH ×3 (09:26→17:06)
[2018-10-23] MEDS: PHENYLEPHRINE 80 MG in SODIUM CHLORIDE 0.9% 492 ML IV PRN (10:40)
[2018-10-23] MEDS: METOCLOPRAMIDE 10MG/10 ML UDC PO SCH ×3 (10:53→23:13)
[2018-10-23] MEDS: DEXT 10% WATER 1,000 ML IV SCH (10:55)
[2018-10-23 11:50] LABS: PLATELET ESTIMATE MARKEDLY DECREASED
[2018-10-23] MEDS: MICAFUNGIN 100 MG in SODIUM CHLORIDE 0.9% 100 ML IV SCH (14:40)
[2018-10-23] MEDS: FILGRASTIM-TBO 480 MCG/0.8 ML SYRINGE SQ SCH (21:22)
[2018-10-24] VITALS (98 sets, daily range): BP systolic 82–125; BP diastolic 30–80
[2018-10-24] MEDS: IPRATROPIUM BROMIDE (0.02%) 0.5MG/2.5ML NEB HHN SCH ×2 (02:01→15:03)
[2018-10-24] MEDS: MORPHINE SULFATE 2 MG/ML CPJ (NOT FOR IM USE) IV PRN ×2 (03:43→22:32)
[2018-10-24] MEDS: MEROPENEM 1,000 MG in SODIUM CHLORIDE 0.9% 100 ML IV SCH ×2 (05:02→17:42)
[2018-10-24] MEDS: METOCLOPRAMIDE 10MG/10 ML UDC PO SCH ×3 (05:02→17:42)
[2018-10-24] MEDS: HYDROCORTISONE SOD SUCCINATE 100 MG/2 ML VIAL IV SCH ×3 (05:02→21:58)
[2018-10-24] MEDS: DEXT 10% WATER 1,000 ML IV SCH (05:03)
[2018-10-24] MEDS: BLOOD SUGAR DIAGNOSTIC STRIP TEST SCH ×3 (05:10→17:42)
[2018-10-24] MEDS: INSULIN LISPRO 100 UNITS/ML SUBCUT SCH ×6 (05:12→18:48)
[2018-10-24 05:37] LABS: HEMOGLOBIN. 7.2 g/dL (14.0-18.0); MEAN CORPUSCULAR HEMOGLOBIN 30.2 pg (28.0-32.0); MEAN CORPUSCULAR VOLUME 85.2 fL (80.0-94.0); MEAN PLATELET VOLUME 8.9 fl (7.4-10.4); RED BLOOD CELL COUNT 2.39 mill/uL (4.7-6.1)
[2018-10-24 05:43] LABS: PHOSPHORUS 5.2 mg/dL (2.5-4.9)
[2018-10-24 06:00] LABS: HEMATOCRIT. 20.4 % (42.0-52.0)
[2018-10-24 07:25] LABS: PLATELET ESTIMATE MARKEDLY DECREASED
[2018-10-24 07:26] LABS: PLATELET 23 x1000/uL (130-400)
[2018-10-24 07:56] LABS: BG BASE EXCESS -8.4 mmol/L (-2.0-2.0); BG CARBOXYHEMOGLOBIN 0.2 % (0.5-1.5); BG DEOXYHEMOGLOBIN 1.5 % (0.0-5.0); BG FRACTION INSPIRED OXYGEN 40; BG HCO3 ACT 14.9 mmol/L (22.0-26.0); BG METHEMOGLOBIN 0.3 % (0.0-1.5); BG OXYGEN SATURATION 98.5 % (92.0-98.5); BG PCO2 23.1 mmHg (35.0-45.0); BG PH 7.427 (7.350-7.450); BG PO2 214.4 mmHg (75.0-100.0); BG SAMPLE SITE RIGHT RADIAL; BG TIDAL VOLUME(mL) 500 mL; BG TOTAL HEMOGLOBIN 7.8 g/dL (12.0-18.0); BG VENT MODE VENT - A/C; BG VENT RATE 20 set
[2018-10-24] MEDS: PANTOPRAZOLE SODIUM 40 MG/VIAL IV SCH (08:38)
[2018-10-24] MEDS: CITRIC ACID/SODIUM CITRATE SOLN 30ML UDC NG SCH ×3 (08:38→17:42)
[2018-10-24] MEDS ORDERED: KCL 20MEQ/100ML PREMIX 100 ML IV NR (10:00)
[2018-10-24] MEDS: POTASSIUM ACETATE IV SCH (10:21)
[2018-10-24] MEDS: DEXT IV SCH (10:21)
[2018-10-24] MEDS: NACL IV SCH (10:21)
[2018-10-24] MEDS: MICAFUNGIN 100 MG in SODIUM CHLORIDE 0.9% 100 ML IV SCH (13:15)
[2018-10-24] MEDS: FILGRASTIM-TBO 480 MCG/0.8 ML SYRINGE SQ SCH (21:58)
[2018-10-25] VITALS (94 sets, daily range): BP systolic 90–149; BP diastolic 50–85
[2018-10-25] MEDS: METOCLOPRAMIDE 10MG/10 ML UDC PO SCH ×4 (00:29→17:28)
[2018-10-25] MEDS: BLOOD SUGAR DIAGNOSTIC STRIP TEST SCH ×5 (00:29→23:38)
[2018-10-25] MEDS: INSULIN LISPRO 100 UNITS/ML SUBCUT SCH ×6 (00:30→17:28)
[2018-10-25] MEDS: IPRATROPIUM BROMIDE (0.02%) 0.5MG/2.5ML NEB HHN SCH ×3 (02:16→20:14)
[2018-10-25 05:19] LABS: HEMATOCRIT. 22.4 % (42.0-52.0); MEAN CORPUSCULAR HEMOGLOBIN 30.4 pg (28.0-32.0); MEAN PLATELET VOLUME 11.6 fl (7.4-10.4); RED BLOOD CELL COUNT 2.64 mill/uL (4.7-6.1); RED CELL DISTRIBUTION WIDTH 15.9 % (11.6-14.6)
[2018-10-25 05:23] LABS: CHLORIDE 106 mEq/L (98-107)
[2018-10-25] MEDS: MEROPENEM 1,000 MG in SODIUM CHLORIDE 0.9% 100 ML IV SCH ×2 (05:24→16:39)
[2018-10-25 06:17] LABS: PLATELET 8 x1000/uL (130-400)
[2018-10-25] MEDS: HYDROCORTISONE SOD SUCCINATE 100 MG/2 ML VIAL IV SCH ×3 (06:46→21:42)
[2018-10-25] MEDS: DEXT IV SCH (08:11)
[2018-10-25] MEDS: CITRIC ACID/SODIUM CITRATE SOLN 30ML UDC NG SCH ×3 (08:11→16:39)
[2018-10-25] MEDS: PANTOPRAZOLE SODIUM 40 MG/VIAL IV SCH (08:11)
[2018-10-25] MEDS: POTASSIUM ACETATE IV SCH (08:11)
[2018-10-25] MEDS: NACL IV SCH (08:11)
[2018-10-25 08:21] LABS: BG CARBOXYHEMOGLOBIN 0.2 % (0.5-1.5); BG DEOXYHEMOGLOBIN 1.9 % (0.0-5.0); BG FRACTION INSPIRED OXYGEN 35; BG HCO3 ACT 14.5 mmol/L (22.0-26.0); BG METHEMOGLOBIN 0.5 % (0.0-1.5); BG OXYGEN SATURATION 98.1 % (92.0-98.5); BG OXYHEMOGLOBIN 97.4 % (94.0-97.0); BG PCO2 21.5 mmHg (35.0-45.0); BG PH 7.447 (7.350-7.450); BG PO2 153.2 mmHg (75.0-100.0); BG SAMPLE SITE RIGHT RADIAL; BG TIDAL VOLUME(mL) 500 mL; BG TOTAL HEMOGLOBIN 9.6 g/dL (12.0-18.0); BG VENT MODE VENT - A/C; BG VENT RATE 14 set
[2018-10-25] MEDS ORDERED: KCL 20MEQ/100ML PREMIX 100 ML IV NR ×2 (10:00→13:00)
[2018-10-25 10:34] LABS: PLATELET ESTIMATE MARKEDLY DECREASED
[2018-10-25] MEDS: MORPHINE SULFATE 2 MG/ML CPJ (NOT FOR IM USE) IV PRN ×3 (10:56→18:54)
[2018-10-25] MEDS: POTASSIUM CHLORIDE INJ 40 MEQ in SODIUM CHLORIDE 0.45% 1,000 ML IV SCH (11:16)
[2018-10-25] MEDS: IPRATROPIUM/ALBUTEROL 0.5-3(2.5)MG/3ML NEB HHN PRN (11:50)
[2018-10-25] MEDS: MICAFUNGIN 100 MG in SODIUM CHLORIDE 0.9% 100 ML IV SCH (13:14)
[2018-10-25] MEDS: FILGRASTIM-TBO 480 MCG/0.8 ML SYRINGE SQ SCH (21:42)
[2018-10-26] VITALS (98 sets, daily range): BP systolic 106–174; BP diastolic 60–100
[2018-10-26] MEDS: POTASSIUM CHLORIDE INJ 40 MEQ in SODIUM CHLORIDE 0.45% 1,000 ML IV SCH (00:03)
[2018-10-26] MEDS: METOCLOPRAMIDE 10MG/10 ML UDC PO SCH ×4 (00:03→17:00)
[2018-10-26] MEDS: INSULIN LISPRO 100 UNITS/ML SUBCUT SCH ×4 (00:04→17:06)
[2018-10-26] MEDS: IPRATROPIUM BROMIDE (0.02%) 0.5MG/2.5ML NEB HHN SCH ×4 (02:03→20:13)
[2018-10-26] MEDS: MORPHINE SULFATE 2 MG/ML CPJ (NOT FOR IM USE) IV PRN ×3 (03:11→21:47)
[2018-10-26] MEDS: BLOOD SUGAR DIAGNOSTIC STRIP TEST SCH ×3 (05:31→17:04)
[2018-10-26] MEDS: MEROPENEM 1,000 MG in SODIUM CHLORIDE 0.9% 100 ML IV SCH ×2 (05:37→18:11)
[2018-10-26] MEDS: HYDROCORTISONE SOD SUCCINATE 100 MG/2 ML VIAL IV SCH ×2 (05:37→13:36)
[2018-10-26 05:44] LABS: CHLORIDE 109 mEq/L (98-107)
[2018-10-26 05:45] LABS: MEAN CORPUSCULAR HEMOGLOBIN 29.9 pg (28.0-32.0); MEAN CORPUSCULAR VOLUME 85.8 fL (80.0-94.0); RED BLOOD CELL COUNT 2.26 mill/uL (4.7-6.1); RED CELL DISTRIBUTION WIDTH 16.2 % (11.6-14.6)
[2018-10-26 05:54] LABS: PHOSPHORUS 6.3 mg/dL (2.5-4.9)
[2018-10-26 06:56] LABS: HEMATOCRIT. 19.4 % (42.0-52.0); HEMOGLOBIN. 6.8 g/dL (14.0-18.0)
[2018-10-26 06:57] LABS: PLATELET 12 x1000/uL (130-400)
[2018-10-26] MEDS: CITRIC ACID/SODIUM CITRATE SOLN 30ML UDC NG SCH ×3 (08:00→16:57)
[2018-10-26] MEDS: PANTOPRAZOLE SODIUM 40 MG/VIAL IV SCH (08:00)
[2018-10-26 08:27] LABS: PLATELET ESTIMATE MARKEDLY DECREASED
[2018-10-26 10:03] LABS: BG BASE EXCESS -6.4 mmol/L (-2.0-2.0); BG CARBOXYHEMOGLOBIN 0.2 % (0.5-1.5); BG DEOXYHEMOGLOBIN 2.1 % (0.0-5.0); BG FRACTION INSPIRED OXYGEN 35; BG HCO3 ACT 16.8 mmol/L (22.0-26.0); BG METHEMOGLOBIN 0.6 % (0.0-1.5); BG OXYGEN SATURATION 97.9 % (92.0-98.5); BG OXYHEMOGLOBIN 97.1 % (94.0-97.0); BG PCO2 24.9 mmHg (35.0-45.0); BG PH 7.446 (7.350-7.450); BG PO2 142.9 mmHg (75.0-100.0); BG PRESSURE SUPPORT 12; BG SAMPLE SITE RIGHT RADIAL; BG TIDAL VOLUME(mL) 500 mL; BG TOTAL HEMOGLOBIN 7.7 g/dL (12.0-18.0); BG VENT MODE VENT - SIMV; BG VENT RATE 10 set
[2018-10-26] MEDS ORDERED: FENTANYL CITRATE/PF 500 MCG in SODIUM CHLORIDE 0.9% 40 ML IV PRN (10:30)
[2018-10-26] MEDS: MICAFUNGIN 100 MG in SODIUM CHLORIDE 0.9% 100 ML IV SCH (13:36)
[2018-10-26] MEDS ORDERED: POTASSIUM CHLORIDE INJ 40 MEQ in SODIUM CHLORIDE 0.45% 1,000 ML IV SCH (14:00)
[2018-10-26] MEDS ORDERED: CALCIUM CARBONATE 1250MG TABLET (500MG ELEMENTAL CALCIUM) PO SCH (17:00)
[2018-10-26] MEDS: FILGRASTIM-TBO 480 MCG/0.8 ML SYRINGE SQ SCH (20:41)
[2018-10-27] MEDS ORDERED: PHYTONADIONE 10MG/ML AMP SUBCUT NR (09:00)
== END 2018-10-26 22:15 | disposition short-term general hospital (02) | DRG 870 ==
LOC: ER 04:21 → MICUSO 05:36 → EDBEDREQSVC 05:39 → EDBEDREQTM 05:39 → EDBEDREQ 05:39 → ENRESERV 05:53
PROVIDERS: ADMIT Internal Medicine; ATTEND Internal Medicine
PROC: 0BH17EZ Insertion of Endotracheal Airway into Trachea, Via Natural or Artificial Opening (ICD-10-PCS; principal; 2018-10-19)
PROC: 5A1955Z Respiratory Ventilation, Greater than 96 Consecutive Hours (ICD-10-PCS; 2018-10-19)
PROC: 06HY33Z Insertion of Infusion Device into Lower Vein, Percutaneous Approach (ICD-10-PCS; 2018-10-19)
PROC: 30233R1 Transfusion of Nonautologous Platelets into Peripheral Vein, Percutaneous Approach (ICD-10-PCS; 2018-10-20)
PROC: 30233N1 Transfusion of Nonautologous Red Blood Cells into Peripheral Vein, Percutaneous Approach (ICD-10-PCS; 2018-10-20)
DX: A41.59 Other Gram-negative sepsis (principal); E43 Unspecified severe protein-calorie malnutrition; R65.21 Severe sepsis with septic shock; J96.00 Acute respiratory failure, unspecified whether with hypoxia or hypercapnia; J18.1 Lobar pneumonia, unspecified organism; G92 Toxic encephalopathy; N17.0 Acute kidney failure with tubular necrosis; D65 Disseminated intravascular coagulation [defibrination syndrome]; E87.1 Hypo-osmolality and hyponatremia; D61.818 Other pancytopenia; E87.2 Acidosis; I10 Essential (primary) hypertension; E11.65 Type 2 diabetes mellitus with hyperglycemia; E83.51 Hypocalcemia; Z66 Do not resuscitate; B96.1 Klebsiella pneumoniae [K. pneumoniae] as the cause of diseases classified elsewhere; R74.0 Nonspecific elevation of levels of transaminase and lactic acid dehydrogenase [LDH]; E87.6 Hypokalemia; E11.649 Type 2 diabetes mellitus with hypoglycemia without coma; R19.7 Diarrhea, unspecified; E80.6 Other disorders of bilirubin metabolism; Z79.4 Long term (current) use of insulin; Z79.52 Long term (current) use of systemic steroids; Z95.828 Presence of other vascular implants and grafts; Z86.711 Personal history of pulmonary embolism; Z83.3 Family history of diabetes mellitus; Z82.49 Family history of ischemic heart disease and other diseases of the circulatory system; Z86.718 Personal history of other venous thrombosis and embolism; Z79.01 Long term (current) use of anticoagulants; Z79.899 Other long term (current) drug therapy; Z92.21 Personal history of antineoplastic chemotherapy; Z68.29 Body mass index [BMI] 29.0-29.9, adult; Z85.72 Personal history of non-Hodgkin lymphomas
CPT/HCPCS: 31500; 36415; 36556; 36600; 71045; 74176; 80048; 80076; 80202; 81003; 82375; 82533; 82607; 82746; 82805; 82947; 82962; 83036; 83540; 83550; 83605; 83735; 84100; 84145; 84439; 84443; 84478; 84484; 85014; 85018; 85049; 85379; 85384; 86850; 86870; 86880; 86900; 86920; 86945; 87070; 87077; 87106; 87186; 93005; 93970; 94002; 94003; 94640; 96361; 96374; 96375; 99291; C9113; J0278; J0692; J1442; J1610; J1720; J1815; J2185; J2248; J2250; J2270; J2370; J2405; J2543; J2704; J3010; J3370; J3475; J3480; J3490; J7030; J7040; J7042; J7050; J7060; J7620; J8597; P9016; P9034; P9047